=== PATIENT | male | born 2000 | race American Indian/Alaskan Native ===

== ENCOUNTER 2023-04-11 22:20 | Emergency (ER) | payer SELFPAY ==
[2023-04-11 22:54] LABS: BASOPHILS PERCENT AUTO 0.3 % (0.0-1.0); EOSINOPHILS PERCENT AUTO 2.3 % (1.0-3.0); HEMATOCRIT 41.7 % (40.0-54.0); HEMOGLOBIN 14.7 g/dL (14.0-18.0); LYMPHOCYTES PERCENT AUTO 27.5 % (20.5-50.1); MEAN CORPUSCULAR HEMOGLOBIN 29.3 pg (27.0-34.0); MEAN CORPUSCULAR HGB CONC 35.3 g/dL (33.0-35.0); MEAN CORPUSCULAR VOLUME 83.1 fL (80-100); MONOCYTES PERCENT AUTO 6.4 % (2-8); NEUTROPHILS PERCENT AUTO 63.5 % (42.2-75.2); PLATELET COUNT,PLT 296 10^3/uL (150-450); RED BLOOD CELL COUNT 5.02 10^6/uL (4.6-6.2); WHITE BLOOD CELL COUNT,WBC 11.5 10^3/uL (5.0-10.0)
[2023-04-11 23:15] LABS: A/G RATIO 1.1; ALBUMIN 4.1 g/dL (3.4-5.0); ANION GAP 12.6 mEq/L (7-13); BILIRUBIN TOTAL 0.5 mg/dL (0.2-1.0); BUN/CREATININE RATIO 16.5 (No establ ref range); C-REACTIVE PROTEIN 0.57 ng/dL (<=0.50); CALCIUM 8.9 mg/dL (8.5-10.1); CREATININE 1.21 mg/dL (0.70-1.30); EST CRCL DRUG DOSING (CG) 93.43 mL/min; POTASSIUM,K 3.6 mmol/L (3.5-5.1); PROTEIN TOTAL,TP 7.9 g/dL (6.4-8.2)
[2023-04-11 23:18] LABS: PROTHROMBIN TIME 9.8 SEC (9.0-12.0)
== END 2023-04-12 01:05 | disposition home or self-care (01) ==
LOC: DL.ED 22:20
DX: R07.9 Chest pain, unspecified (principal); R03.0 Elevated blood-pressure reading, without diagnosis of hypertension
CPT/HCPCS: 36415; 71045; 80053; 80307; 83690; 83735; 84484; 85025; 85610; 85730; 86140; 93005; 93010; 99284; 99285